=== PATIENT | female | born 1955 | race Caucasian/White ===

== ENCOUNTER 2017-10-14 22:55 | Emergency (ER) | payer OTHER ==
[2017-10-15] MEDS ORDERED: Orphenadrine 100 MG Tab.ER PO STA (01:01)
--- NOTE | 2017-10-15 01:03 | EDM.PDOC ---
ED HPI GENERAL MEDICAL PROBLEM - General Chief Complaint: Lower Extremity Injury/Pain Time Seen by Provider: 10/15/17 00:50 Source of Information: Reports: Patient, Family (Daughter) History Limitations: Reports: No Limitations - History of Present Illness INITIAL COMMENTS - FREE TEXT/NARRATIVE: The patient states that she lives in [place], [place], and is here visiting her daughter. She states that she has had muscle spasms all over her body for about 10 years. She sees a PA in [place], although states that she is not currently receiving any medication for her symptoms, and, in fact, the patient states that she has never been on a muscle relaxant, ever. She states that today, the muscle spasms in her posterior left leg are worse than usual. Her symptoms are improved with ambulation. No recent injury to the leg. No noted swelling. No recent fever. No chest pain, dyspnea, or palpitations. Left Leg Pain Score (Numeric/FACES): 8 - Related Data Allergies Allergy/AdvReac Type Severity Reaction Status Date / Time No Known Allergies Allergy Verified 10/14/17 23:18 Home Meds: Home Meds Orphenadrine [Norflex] 1 tab PO Q12H PRN #10 tab.er 10/15/17 [Rx] Past Medical History HEENT History: Reports: Impaired Vision Respiratory History: Reports: Sleep Apnea (nightly CPAP 19) Gastrointestinal History: Reports: Other (See Below) (Achalasia) Endocrine/Metabolic History: Reports: Hypothyroidism, Obesity/BMI 30+ Oncologic (Cancer) History: Reports: Lung (Adenocarcinoma, status post left lower lobectomy, CTx) - Past Surgical History Cardiovascular Surgical History: Reports: Vascular Surgery (Right Port-A-Cath) Respiratory Surgical History: Reports: Lung Resection (Left lower lobectomy) GI Surgical History: Reports: Other (See Below) (Esophageal surgery for achalasia) Female Surgical History: Reports: Oophorectomy (right) Social & Family History - Family History Family Medical History: Noncontributory - Tobacco Use Smoking Status *Q: Former Smoker Month/Year Tobacco Last Used: Quit 06/11/16 - Caffeine Use Caffeine Use: Reports: Coffee Other Caffeine Use: daily - Recreational Drug Use Recreational Drug Use: No Review of Systems - Review of Systems Review Of Systems: ROS reveals no pertinent complaints other than HPI. ED EXAM, GENERAL - Physical Exam Exam: See Below Exam Limited By: No Limitations General Appearance: Alert, WD/WN, No Apparent Distress Extremities: Other (No visible abnormality to the left lower extremity, when compared to the right, , such as swelling, erythema, ecchymosis, or abrasion. There is some discomfort in manipulating the left lower extremity. Mid-calf circumference of the right leg is 42 cm. Mid-calf circumference of the left leg is 41 cm. Neurovascular status of both lower extremities is intact.) Course - Vital Signs Last Recorded V/S: Last Vital Signs Temp 36.7 C 10/14/17 23:14 Pulse 77 10/14/17 23:14 Resp 22 H 10/14/17 23:14 BP 116/71 10/14/17 23:14 Pulse Ox 100 10/14/17 23:14 - Orders/Labs/Meds Meds: Medications Discontinued Medications Generic Name Dose Route Start Last Admin Trade Name Freq PRN Reason Stop Dose Admin Orphenadrine Citrate 100 mg 10/15/17 01:01 10/15/17 01:15 Norflex PO 10/15/17 01:02 100 mg ONETIME STA Administration - Re-Assessments/Exams Free Text/Narrative Re-Assessment/Exam: 10/15/17 01:02 My suspicion for a left lower extremity DVT in this patient is low. The circumference of her left leg is actually less than the circumference in her right leg, however, our role is to rule out emergencies, therefore I have ordered a Doppler ultrasound of the left leg to evaluate for a DVT. In the meantime, I will start the patient on oral Norflex, which, presuming the Doppler is negative, we can continue. 10/15/17 03:34 Venous Doppler of the left lower extremity is read by [facility] as "No evidence of deep venous thrombosis in the left lower extremity." 10/15/17 03:37 Ultrasound results discussed with the patient. As above, there is no evidence for DVT. The patient's discomfort is most likely due to muscle spasm. I will e- prescribe Norflex. Departure - Departure Time of Disposition: 03:38 Disposition: Home, Self-Care 01 Condition: Good Clinical Impression: Muscle spasm of left lower extremity - Discharge Information Prescriptions: Orphenadrine [Norflex] 1 tab PO Q12H PRN #10 tab.er PRN Reason: Muscle Spasm Instructions: Muscle Cramps and Spasms, [id number] Referrals: PCP,Not In Area [Primary Care Provider] - Forms: ED Department Discharge Additional Instructions: You were seen in the emergency room for left leg muscle spasms. Workup in the ER included a Doppler ultrasound of your left lower extremity, which was negative for blood clots or other abnormal findings. You have been started on the muscle relaxant Norflex. A prescription for Norflex has been sent to the [facility] pharmacy, [address] [place] [address]. Take one tablet every 12 hours, as prescribed. Follow-up with your PCP once you return home. If any other problems, please do not hesitate to return to the ER.
--- NOTE | 2017-10-15 08:31 | US ---
Left lower extremity deep venous ultrasound: Duplex and color flow imaging was obtained of the left common femoral, proximal greater saphenous, superficial femoral, popliteal, posterior tibial and peroneal veins. Right common femoral vein was also evaluated. Diminished evaluation of compression of the peroneal vein is noted. Normal phasic flow and augmentation is seen. Other veins show normal phasic flow, augmentation and compression. Impression: 1. Nothing seen to indicate deep venous thrombosis within left lower extremity or within the right common femoral vein. Diagnostic code #2 I agree with preliminary report issued by [facility] ([facility] preliminary report dictated on 10/15/17, 3:57 AM Central Time)
== END 2017-10-15 03:51 | disposition home or self-care (01) ==
LOC: JD.ED 22:55
DX: M62.838 Other muscle spasm (principal); M79.605 Pain in left leg; E03.9 Hypothyroidism, unspecified; Z87.891 Personal history of nicotine dependence
CPT/HCPCS: 93971; 99284; A9270; 99283